=== PATIENT | male | born 1935 | race Caucasian/White ===

== ENCOUNTER → 2016-08-14 | Outpatient (CLI) | payer MEDICARE | LOC: LAB 10:10 | PROVIDERS: ATTEND Physician Assistant Medical | DX: Z86.718 Personal history of other venous thrombosis and embolism (principal); Z86.711 Personal history of pulmonary embolism | CPT/HCPCS: 36415; 85610 ==

== ENCOUNTER → 2016-09-17 | Outpatient (CLI) | payer MEDICARE | LOC: LAB 10:08 | DX: Z86.718 Personal history of other venous thrombosis and embolism (principal); Z86.711 Personal history of pulmonary embolism | CPT/HCPCS: 36415; 85610 ==

== ENCOUNTER → 2016-11-07 | Outpatient (CLI) | payer MEDICARE | LOC: LAB 08:26 | DX: I82.409 Acute embolism and thrombosis of unspecified deep veins of unspecified lower extremity (principal); I26.99 Other pulmonary embolism without acute cor pulmonale | CPT/HCPCS: 36415; 85610 ==